=== PATIENT | female | born 1980 ===

== ENCOUNTER 2019-01-08 20:56 | Emergency (ER) | payer OTHER ==
[2019-01-08 21:09] VITALS: TEMP 98.3; O2SAT 100
[2019-01-08] MEDS ORDERED: Sodium Chloride 0.9% 1,000 ML IV ONE (21:29)
--- NOTE | 2019-01-08 21:31 | C.PDOC ---
History Of Present Illness 38 year old female presents with intermittent vaginal bleeding since yesterday. LMP 11/10/18, . Denies any pain. Time Seen by Provider: 01/08/19 21:11 Chief Complaint (Nursing): Female Genitourinary History Per: Patient History/Exam Limitations: no limitations Onset/Duration Of Symptoms: Other (Yesterday) Current Symptoms Are (Timing): Still Present Associated Symptoms: Other (Vaginal bleeding) Alleviating Factors: None Recent travel outside of the [place]: No Abnormal Vaginal Bleeding: No Past Medical History Reviewed: Historical Data, Nursing Documentation, Vital Signs Vital Signs: Last Vital Signs Temp 98.3 F 01/08/19 21:05 Pulse 73 01/08/19 21:05 Resp 20 01/08/19 21:05 BP 120/84 01/08/19 21:05 Pulse Ox 100 01/08/19 21:05 Primary Care Provider: Sid Her Family History: States: Unknown Family Hx - Social History Hx Alcohol Use: No Hx Substance Use: No - Immunization History Hx Tetanus Toxoid Vaccination: No Hx Influenza Vaccination: No Hx Pneumococcal Vaccination: No Review Of Systems Constitutional: Negative for: Fever, Chills Cardiovascular: Negative for: Chest Pain, Palpitations Respiratory: Negative for: Cough, Shortness of Breath Gastrointestinal: Negative for: Nausea, Vomiting Genitourinary: Positive for: Vaginal Bleeding Neurological: Negative for: Weakness, Numbness Physical Exam - Physical Exam Appears: Non-toxic Skin: Normal Color, Warm Head: Atraumatic, Normacephalic Eye(s): bilateral: Normal Inspection Oral Mucosa: Moist Neck: Normal, Supple Chest: Symmetrical, No Tenderness Cardiovascular: Rhythm Regular Respiratory: Normal Breath Sounds, No Rales, No Rhonchi, No Wheezing Gastrointestinal/Abdominal: Soft, No Tenderness Pelvic: Other (Cervix closed. No cervical tenderness. Minimal bleeding in the cervical os.) Neurological/Psych: Oriented x3, Normal Speech ED Course And Treatment - Laboratory Results Result Diagrams: 01/08/19 22:24 01/08/19 22:24 O2 Sat by Pulse Oximetry: 100 (room air) Pulse Ox Interpretation: Normal Progress Note: Blood work and pelvis US ordered. IV fluids administered. Disposition Counseled Patient/Family Regarding: Diagnosis - Disposition Referrals: [facility] [Outside] Disposition: HOME/ ROUTINE Disposition Time: 23:50 Condition: STABLE Instructions: Threatened Miscarriage, Bleeding With (DC) Forms: [facility] (Gabonese), Gen Discharge Inst Kuwaiti Print Language: URDU - POA Present On Arrival: None - Clinical Impression Clinical Impression: Threatened in early - Scribe Statement The provider has reviewed the documentation as recorded by the Scribe Vince Fernandez All medical record entries made by the Scribe were at my direction and personally dictated by me. I have reviewed the chart and agree that the record accurately reflects my personal performance of the history, physical exam, medical decision making, and the department course for this patient. I have also personally directed, reviewed, and agree with the discharge instructions and disposition.
[2019-01-08 22:29] LABS: BASO # 0.1 K/uL (0.0-0.2); EOS # 0.2 K/uL (0.0-0.7); EOS % 2.6 % (0.0-4.0); HEMOGLOBIN 12.3 g/dL (11.0-16.0); LYMPH % 27.7 % (20.0-40.0); MEAN CELL VOLUME 91.6 fL (81.0-99.0); MEAN CORPUSCULAR HEMOGLOBIN 31.1 pg (27.0-31.0); MEAN PLATELET VOLUME 7.5 fL (7.2-11.7); MONO # 0.5 K/uL (0.0-0.8); MONO % 6.6 % (0.0-10.0); NEUT # 4.6 K/uL (1.8-7.0); NEUT % 62.1 % (50.0-75.0); NRBC % 0.1 % (0.0-2.0); RBC 3.96 Mil/uL (3.80-5.20); RED CELL DISTRIBUTION WIDTH 13.1 % (11.5-14.5); WHITE BLOOD COUNT 7.4 K/uL (4.8-10.8)
[2019-01-08 22:37] LABS: PARTIAL THROMBOPLASTIN TIME 37.3 SECONDS (21-34)
[2019-01-08 22:57] LABS: ALB/GLOB RATIO 1.5 (1.0-2.1); ALBUMIN 4.3 g/dL (3.5-5.0); ALT/SGPT 12 U/L (9-52); AST/SGOT 28 U/L (14-36); BLOOD UREA NITROGEN 9 mg/dL (7-17); CALCIUM 8.9 mg/dl (8.6-10.4); GFR NON-AFRICAN AMERICAN > 60
[2019-01-09 00:06] VITALS: BP 124/76; PULSE 80; RESP 17
--- NOTE | 2019-01-09 12:14 | US ---
Date of service: 01/08/2019 Indication: vaginal bleed Comparison: None available Technique: Transvaginal pelvic ultrasound Findings: The uterus measures approximately 8.9 x 6.1 x 6.4 cm. Anteverted. Cervix length measures approximately 3.0 cm. 1.4 x 1.5 x 1.2 cm right anterior uterine fibroid. 1.9 x 1.9 x 2.6 cm posterior lower uterine segment fibroid. There is a single intrauterine fetus present. 4 mm yolk sac. The gestational sac measures 1.7 cm and is compatible with a gestational age of 6 weeks 0 days. The crown-rump length measures 0.3 cm and is compatible with a gestational age of 6 weeks 0 days. heart motion is not detected. The right ovary measures 2.7 x 1.4 x 3.2 cm. The left ovary measures 2.3 x 1.4 x 2.3 cm. Blood flow was demonstrated to both ovaries. Impression: Single intrauterine with estimated gestational age 6 weeks 0 days. heart motion is not detected during this examination. Recommend clinical correlation and short-term follow-up ultrasound as indicated. Advise an anomaly screen at 16-18 weeks gestational age Uterine fibroids. Preliminary impression was provided by [employer].
== END 2019-01-08 23:55 | disposition home or self-care (01) ==
LOC: C.ER 20:56
DX: O20.0 Threatened abortion (principal); Z3A.01 Less than 8 weeks gestation of pregnancy

== ENCOUNTER 2019-01-12 15:35 | Emergency (ER) | payer OTHER ==
[2019-01-12 16:48] LABS: BASO # 0.1 K/uL (0.0-0.2); BASO % 0.7 % (0.0-2.0); EOS # 0.1 K/uL (0.0-0.7); EOS % 1.6 % (0.0-4.0); HEMOGLOBIN 13.3 g/dL (11.0-16.0); LYMPH # 2.6 K/uL (1.0-4.3); LYMPH % 33.4 % (20.0-40.0); MEAN CELL VOLUME 92.1 fL (81.0-99.0); MEAN CORPUSCULAR HEMOGLOBIN 32.1 pg (27.0-31.0); MEAN CORPUSCULAR HGB CONC 34.8 g/dL (33.0-37.0); MONO # 0.5 K/uL (0.0-0.8); NEUT # 4.5 K/uL (1.8-7.0); NEUT % 58.3 % (50.0-75.0); NRBC % 0.1 % (0.0-2.0); RBC 4.16 Mil/uL (3.80-5.20); RED CELL DISTRIBUTION WIDTH 12.9 % (11.5-14.5); WHITE BLOOD COUNT 7.8 K/uL (4.8-10.8)
--- NOTE | 2019-01-12 17:07 | C.PDOC ---
History Of Present Illness 38 year old female presents to the emergency department with complaints of vaginal bleeding with clots, associated with crampy lower abdominal pain. Patient states that she is , and was evaluated in [facility] in [place] last week and was told that she is approximately 6 weeks . This morning, patient had the abdominal pain and vaginal bleeding and presented to the ED. Patient denies vomiting and diarrhea. Time Seen by Provider: 01/12/19 15:45 Chief Complaint (Nursing): Female Genitourinary History Per: Patient History/Exam Limitations: no limitations Onset/Duration Of Symptoms: Hrs Current Symptoms Are (Timing): Still Present Location Of Pain/Discomfort: Other (lower abdomen) Associated Symptoms: Other (abdominal pain, vaginal bleeding). denies: Fever, Chills, Nausea, Vomiting, Diarrhea Past Medical History Reviewed: Historical Data, Nursing Documentation, Vital Signs Vital Signs: Last Vital Signs Temp 98.6 F 01/12/19 15:39 Pulse 75 01/12/19 15:39 Resp 20 01/12/19 15:39 BP 129/82 01/12/19 15:39 Pulse Ox 98 01/12/19 15:39 - Medical History PMH: No Chronic Diseases Surgical History: No Surg Hx Family History: States: No Known Family Hx - Social History Hx Alcohol Use: No Hx Substance Use: No - Immunization History Hx Tetanus Toxoid Vaccination: No Hx Influenza Vaccination: No Hx Pneumococcal Vaccination: No Review Of Systems Except As Marked, All Systems Reviewed And Found Negative. Constitutional: Negative for: Fever, Chills Cardiovascular: Negative for: Chest Pain Respiratory: Negative for: Cough, Shortness of Breath Gastrointestinal: Positive for: Abdominal Pain. Negative for: Nausea, Vomiting, Diarrhea Genitourinary: Positive for: Vaginal Bleeding Neurological: Negative for: Weakness, Numbness Physical Exam - Physical Exam Appears: Non-toxic, No Acute Distress Skin: Normal Color, Warm, Dry Head: Atraumatic, Normacephalic Eye(s): bilateral: Normal Inspection Nose: Normal Neck: Normal, Supple Chest: Symmetrical, No Tenderness Cardiovascular: Rhythm Regular, No Murmur Respiratory: Normal Breath Sounds, No Rales, No Rhonchi, No Wheezing Gastrointestinal/Abdominal: Soft, No Tenderness, No Guarding, No Rebound Pelvic: Vaginal Bleeding (large amount of vaginal bleeding and clots), Other (Functional Director: DIANDRA Anderson) Extremity: Normal ROM Neurological/Psych: Oriented x3, Normal Speech, Normal Cognition ED Course And Treatment - Laboratory Results Result Diagrams: 01/12/19 16:41 01/12/19 16:41 O2 Sat by Pulse Oximetry: 98 (RA) Pulse Ox Interpretation: Normal Medical Decision Making Medical Decision Making: Plan: Blood Bank Type and Screen Chemistry CBC Urinalysis US Transvaginal While at bedside, patient passed large amount of clots with sac-like material; collected and sent to pathology for further examination. Results were discussed with the patient. Ultrasound shows no sac or retained products, (+) fibroids. On re-exam, the patient reports improvement of symptoms. Lungs are CTA, heart is RRR, Abdomen is soft, non-tender and the patient is tolerating PO well. Ambulatory in the ED with steady gait. Disposition - Disposition Referrals: [facility] [Outside] Disposition: HOME/ ROUTINE Disposition Time: 18:23 Condition: GOOD Additional Instructions: Follow up with the OBGYN within 1-2 days without fail. Return if worsened. Beta-hcg needs to be repeated within 2-3 days to make sure it is decreasing normally. Instructions: Miscarriage (DC) Forms: [employer] (Arabic) Print Language: CENTRAL AFRICAN - Clinical Impression Clinical Impression: Spontaneous - PA / COMPUTER FORENS[employer] ANALYST / Resident Statement MD/DO has reviewed & agrees with the documentation as recorded. - Scribe Statement The provider has reviewed the documentation as recorded by the Scribe (Lucien Aguilar) All medical record entries made by the Scribe were at my direction and personally dictated by me. I have reviewed the chart and agree that the record accurately reflects my personal performance of the history, physical exam, medical decision making, and the department course for this patient. I have also personally directed, reviewed, and agree with the discharge instructions and disposition.
[2019-01-12 17:24] LABS: ALB/GLOB RATIO 1.6 (1.0-2.1); ALT/SGPT 11 U/L (9-52); AST/SGOT 39 U/L (14-36); BLOOD UREA NITROGEN 10 mg/dL (7-17); GFR NON-AFRICAN AMERICAN > 60
--- NOTE | 2019-01-12 17:55 | US ---
Date of service: 01/12/2019 Indication: vag bleed, preg, abd pain Comparison: None available Technique: Transvaginal pelvic ultrasound Findings: Uterus measures approximately 10.2 x 5.5 x 5.0 cm. Anteverted. Heterogeneous uterine masses consistent with fibroids measure 1.5 x 1.6 x 1.6 cm (anterior) and 2.2 x 1.9 x 2.5 cm (posterior low uterine wall). Cervix length measures approximately 3.8 cm. Endometrial thickness measures approximately 1.4 cm. No evidence of intrauterine gestational sac. The right ovary measures 2.7 x 2 x 2.5 cm. The left ovary measures 3.0 x 1.5 x 2.6 cm. Blood flow was demonstrated to both ovaries. Impression: No evidence of intrauterine gestational sac. If indeed the patient is based on serum beta HCG values, the sonographic findings represent either: Very early IUP; embryonic demise; ectopic gestation. Follow-up with serial quantitative serum beta HCG measurements and post OBGYN follow-up as clinically indicated, since ectopic gestation cannot be excluded based only on sonographic findings. Uterine fibroids as above.
[2019-01-12 18:59] VITALS: BP 122/86; PULSE 87; RESP 20; TEMP 98; O2SAT 99
[2019-01-12 19:00] LABS: SQUAMOUS EPITHIAL < 1 /hpf (0-5); URINE BACTERIA RARE (<OCC); URINE BILIRUBIN NEGATIVE (NEGATIVE); URINE BLOOD 3+ (NEGATIVE); URINE CLARITY Clear (Clear); URINE COLOR Red (YELLOW); URINE GLUCOSE (UA) NORMAL (Normal); URINE LEUKOCYTE ESTERASE NEG Leu/uL (Negative); URINE PROTEIN NEGATIVE (NEGATIVE); URINE UROBILINOGEN NORMAL mg/dL (0.2-1.0)
== END 2019-01-12 18:59 | disposition home or self-care (01) ==
LOC: C.ER 15:35
DX: O03.9 Complete or unspecified spontaneous abortion without complication (principal)